=== PATIENT | male | born 1995 | race Caucasian/White ===

== ENCOUNTER 2019-02-28 14:34 | Emergency (ER) | payer BC ==
--- NOTE | 2019-02-28 17:37 | US ---
INDICATION: Left sided scrotal pain x 3 days. Indication: Left-sided scrotal pain for 3 days. Technique: Scrotal ultrasound. 2D, color, and spectral Doppler interrogation of was obtained. Color/spectral Doppler was performed to evaluate for testicular torsion. Comparison: None. Findings: The right testis measures 3.2 x 4.2 x 2.5 cm. No intratesticular mass. No evidence for testicular torsion. Normal, low resistance arterial blood flow is preserved to the right testis on color/spectral Doppler. No significant hydrocele. The right epididymal head does not appear inflamed. There is no significant scrotal wall thickening. The left testis measures 2.6 x 4.5 x 2.2 cm. No intratesticular mass. No evidence for testicular torsion. Left epididymal head does not appear inflamed. There is a small left hydrocele. Impression: 1. Testes are negative for intratesticular mass or evidence for torsion. 2. Normal, low resistance arterial blood flow is preserved to both testes on color/spectral Doppler. 3. Small left hydrocele. Dictated by Jabier Viera MD @ 02/28/2019 5:36:49 PM Dictated by: Jabier Viera MD @ 02/28/2019 17:37:10 (Electronically Signed)
--- NOTE | 2019-02-28 18:11 | EDM.PDOC ---
ED HPI GENERAL MEDICAL PROBLEM - General Chief Complaint: Genitourinary Problem Stated Complaint: LEFT TESTICLE PAIN Time Seen by Provider: 02/28/19 14:47 Source of Information: Reports: Patient History Limitations: Reports: No Limitations - History of Present Illness INITIAL COMMENTS - FREE TEXT/NARRATIVE: HISTORY AND PHYSICAL: History of present illness: Patient is a 24-year-old male presents to the ED today with concern of left testicular pain off and on x 3 days. Patient denies no new sexual partners in the past 6 months. Patient rates his pain a 4 out of 10 today. Patient denies injury to the area or penile discharge. Patient denies fever, chills, chest pain, shortness of breath, or cough. Denies headache, neck stiff ness, change in vision, syncope, or near syncope. Denies nausea, vomiting, abdominal pain, diarrhea, constipation, or dysuria. Has not noted any blood in urine or stool. Patient has been eating and drinking appropriately. Review of systems: As per history of present illness and below otherwise all systems reviewed and negative. Past medical history: As per history of present illness and as reviewed below otherwise noncontributory. Surgical history: As per history of present illness and as reviewed below otherwise noncontributory. Social history: See social history for further information Family history: As per history of present illness and as reviewed below otherwise noncontributory. Physical exam: General: Patient is alert, oriented, and in no acute distress. Patient sitting comfortably on exam table. HEENT: Atraumatic, normocephalic, pupils equal and reactive bilaterally, negative for conjunctival pallor or scleral icterus, mucous membranes moist, TMs normal bilaterally, throat clear, neck supple, nontender, trachea midline. No drooling or trismus noted. No meningeal signs. No hot potato voice noted. Lungs: Clear to auscultation, breath sounds equal bilaterally, chest nontender. Heart: S1S2, regular rate and rhythm without overt murmur Abdomen: Soft, nondistended, nontender. Negative for masses or hepatosplenomegaly. Negative for costovertebral tenderness. Pelvis: Stable nontender. Genitourinary: No rashes, ulcers, scarring, nodules, induration, penile drainage , scrotal masses or hernias noted. Mild pain to palpation of left testicle. Rectal: Deferred. Skin: Intact, warm, dry. No lesions or rashes noted. Extremities: Atraumatic, negative for cords or calf pain. Neurovascular unremarkable. Neuro: Awake, alert, oriented. Cranial nerves II through XII unremarkable. Cerebellum unremarkable. Motor and sensory unremarkable throughout. Exam nonfocal. Notes: Discussed the importance for follow-up with urology and his primary care provider. Voices understanding and is agreeable to plan of care. Denies any further questions or concerns at this time. Diagnostics: UA, gonorrhea and chlamydia, testicular ultrasound Therapeutics: None Prescription: None Impression: Left testicular hydrocele Plan: 1. You can alternate Tylenol and ibuprofen as directed and as discussed. 2. Follow-up with urologist or primary care provider as discussed. 3. Return to the ED as needed and as discussed. Definitive disposition and diagnosis as appropriate pending reevaluation and review of above. Left Scrotum Pain Score (Numeric/FACES): 4 - Related Data Allergies Allergy/AdvReac Type Severity Reaction Status Date / Time griseofulvin Allergy Hives Verified 02/28/19 15:03 Home Meds: Home Meds . [No Known Home Meds] 02/28/19 [History] Past Medical History - Past Health History Medical/Surgical History: Denies Medical/Surgical History Social & Family History - Tobacco Use Smoking Status *Q: Never Smoker - Recreational Drug Use Recreational Drug Use: No ED ROS GENERAL - Review of Systems Review Of Systems: ROS reveals no pertinent complaints other than HPI. ED EXAM, RENAL/ - Physical Exam Exam: See Below (See dictation) Course - Vital Signs Last Recorded V/S: Last Vital Signs Temp 36.5 C 02/28/19 15:01 Pulse 87 02/28/19 18:32 Resp 18 02/28/19 18:32 BP 131/58 L 02/28/19 18:32 Pulse Ox 97 02/28/19 18:32 - Orders/Labs/Meds Orders: Active Orders 24 hr Category Date Time Status CHLAMYDIA AND GONORRHEA BY TMA Stat Lab 02/28/19 15:45 Received Labs: Laboratory Tests 02/28/19 Range/Units 15:45 Urine Color YELLOW Urine Appearance CLEAR Urine pH 6.5 (5.0-8.0) Ur Specific [place] 1.025 (1.001-1.035) Urine Protein NEGATIVE (NEGATIVE) mg/dL Urine Glucose (UA) NEGATIVE (NEGATIVE) mg/dL Urine Ketones NEGATIVE (NEGATIVE) mg/dL Urine Occult Blood NEGATIVE (NEGATIVE) Urine Nitrite NEGATIVE (NEGATIVE) Urine Bilirubin NEGATIVE (NEGATIVE) Urine Urobilinogen 1.0 (<2.0) EU/dL Ur Leukocyte Esterase NEGATIVE (NEGATIVE) Departure - Departure Time of Disposition: 18:14 Disposition: Home, Self-Care 01 Clinical Impression: Hydrocele Qualifiers: Hydrocele type: other Qualified Code(s): N43.2 - Other hydrocele - Discharge Information Instructions: Hydrocele, Adult Referrals: Abdi Collins MD [Primary Care Provider] - Forms: ED Department Discharge Additional Instructions: The following information is given to patients seen in the emergency department who are being discharged to home. This information is to outline your options for follow-up care. We provide all patients seen in our emergency department with a follow-up referral. The need for follow-up, as well as the timing and circumstances, are variable depending upon the specifics of your emergency department visit. If you don't have a primary care physician on staff, we will provide you with a referral. We always advise you to contact your personal physician following an emergency department visit to inform them of the circumstance of the visit and for follow-up with them and/or the need for any referrals to a consulting specialist. The emergency department will also refer you to a specialist when appropriate. This referral assures that you have the opportunity for follow-up care with a specialist. All of these measure are taken in an effort to provide you with optimal care, which includes your follow-up. Under all circumstances we always encourage you to contact your private physician who remains a resource for coordinating your care. When calling for follow-up care, please make the office aware that this follow-up is from your recent emergency room visit. If for any reason you are refused follow-up, please contact the [facility] Emergency Department at and asked to speak to the emergency department charge nurse. [facility] [address] [place] [id number] [address] [facility] - Urology [address] [place] [id number] 1. You can alternate Tylenol and ibuprofen as directed and as discussed. 2. Follow-up with urologist or primary care provider as discussed. 3. Return to the ED as needed and as discussed.
== END 2019-02-28 18:32 | disposition home or self-care (01) ==
LOC: MW.ED 14:34
DX: N43.2 Other hydrocele (principal); Z88.8 Allergy status to other drugs, medicaments and biological substances
CPT/HCPCS: 76870; 76870-26; 81003; 87491; 87591; 99284-25

== ENCOUNTER 2020-07-31 18:21 | Emergency (ER) | payer BC, OTHER ==
[2020-07-31] MEDS ORDERED: Sodium Chloride 0.9% 1,000 ML IV ONE (18:41)
--- NOTE | 2020-07-31 18:56 | EDM.PDOC ---
ED HPI GENERAL MEDICAL PROBLEM - General Chief Complaint: General Stated Complaint: DIZZY, SHORT BREATH, PLAYING SPORTS Time Seen by Provider: 07/31/20 18:43 Source of Information: Reports: Patient History Limitations: Reports: No Limitations - History of Present Illness INITIAL COMMENTS - FREE TEXT/NARRATIVE: HISTORY AND PHYSICAL: History of present illness: Patient is a 25-year-old male who presents to the emergency room with complaints of dizziness, shortness of breath and near syncopal. Prior to arrival the patient was playing basketball when he became very short of breath and felt dizzy. He said he had to sit down as he felt like he could have passed out. Symptoms continued and are now improving while here in the emergency room. He states this is not the first time this has happened although he has never had it evaluated by a provider. Typically the symptoms are brought on by physical activity and will resolve on their own within a few minutes. Patient denies any fever, chills, headache, change in vision, syncope, chest pain, or back pain. Denies any abdominal pain, nausea, vomiting, diarrhea, constipation or dysuria. Patient has been eating and drinking appropriately. He has no personal history of cardiac or pulmonary illness. He states his family has no significant health history either. He denies any alcohol or drug abuse. Review of systems: As per history of present illness and below otherwise all systems reviewed and negative. Past medical history: As per history of present illness and as reviewed below otherwise noncontributory. Surgical history: As per history of present illness and as reviewed below otherwise noncontributory. Social history: See social history for further information Family history: As per history of present illness and as reviewed below otherwise noncontributory. Physical exam: General: Well developed and well nourished. Alert and orientated x 3. Nontoxic in appearance and in no acute distress. Vital signs are stable and have been reviewed by me. Nursing notes were reviewed. HEENT: Atraumatic, normocephalic, pupils equal and reactive bilaterally, negative for conjunctival pallor or scleral icterus, mucous membranes moist, TMs normal bilaterally, throat clear, neck supple, nontender, trachea midline. No drooling or trismus noted. No meningeal signs. No hot potato voice noted. Lungs: Clear to auscultation, breath sounds equal bilaterally, chest nontender. Normal work of breathing, no accessory muscles used. Heart: S1S2, regular rate and rhythm without overt murmur Abdomen: Soft, nondistended, nontender. Negative for masses or hepatosplenomegaly. Negative for costovertebral tenderness. Pelvis: Stable nontender. Skin: Intact, warm, dry. No lesions or rashes noted. Hematologic: No petechiae or purpra. Mucosa appropriate color and normal nail bed color and refill. Extremities: Atraumatic, moves all extremities per self without difficulty or deficits, negative for cords or calf pain. Neurovascular unremarkable. Neuro: Awake, alert, oriented. Cranial nerves II through XII unremarkable. Cerebellum unremarkable. Motor and sensory unremarkable throughout. Exam nonfocal. Psychiatric: Mood and affect are appropriate. Normal thought process. Answering questions appropriately. Notes: Patient's initial EKG shows atrial fibrillation although there are some noted P waves, rate . His lab work is unremarkable. Chest x-ray is normal. His vital signs have remained stable. A second EKG was ordered after his fluid bolus. Patient's repeat EKG shows a normal sinus rhythm with a rate of 59. His vital signs are stable. I did talk with Dr. Ceballos, cardiology at [facility], to discuss his case. He states the patient should have an echocardiogram as an outpatient (no need for admission) and no daily medication needs to be prescribed at this time. He recommends prescribing Lopressor to be taken twice daily as needed for the onset of palpitations. Patient states he is asymptom atic and would like to be discharged home. I did offer/discuss admission which he declines. Counseling was provided and we discussed in great detail signs and symptoms that would prompt them to return to the Emergency Department. Medication, follow up and supportive care measures were reviewed and discussed. Voices understanding and is agreeable to plan of care. Denies any further questions or concerns at this time. Diagnostics: CBC, CMP, COVID, Troponin, TSH, INR, CXR, EKG x 2 Therapeutics: IV fluids Prescription: Lopressor Impression: Atrial fibrillation Plan: 1. Today your EKG showed you had an irregular heart rhythm, atrial fibrillation. After fluids and time your heart converted back into a normal sinus rhythm. You need to follow-up with a glass sander to have a further work-up, likely an echocardiogram. We do have a glass sander here in [place], Dr. Blakely (Dr. Garcia) or - I spoke with Dr Harley at [facility] in [place], who is aware of your case. Please call on Saturday to set up a follow-up appointment. 2. You have been given a prescription for Lopressor, you can take 1 tab up to twice a day as needed for palpitations. 3. If your symptoms should worsen, new symptoms develop or any of the signs and symptoms we discussed should arise please return to the emergency room or call 911 (if needed). Definitive disposition and diagnosis as appropriate pending reevaluation and review of above. - Related Data Allergies Allergy/AdvReac Type Severity Reaction Status Date / Time griseofulvin Allergy Hives Verified 07/31/20 18:26 Home Meds: Home Meds Metoprolol Succinate [Toprol XL] 12.5 mg PO BID PRN #10 tab.er 07/31/20 [Rx] Past Medical History - Past Health History Medical/Surgical History: Denies Medical/Surgical History Social & Family History - Family History Family Medical History: Noncontributory - Caffeine Use Caffeine Use: Reports: Tea - Recreational Drug Use Recreational Drug Type: Reports: Other (see below) Other Recreational Drug Type: Inhaled CBD ED ROS GENERAL - Review of Systems Review Of Systems: Comprehensive ROS is negative, except as noted in HPI. ED EXAM, GENERAL - Physical Exam Exam: See Below (See dictation) Course - Vital Signs Last Recorded V/S: Last Vital Signs Temp 97.4 F 07/31/20 18:27 Pulse 89 07/31/20 18:27 Resp 20 07/31/20 18:27 BP 117/74 07/31/20 18:27 Pulse Ox 99 07/31/20 18:27 - Orders/Labs/Meds Orders: Active Orders 24 hr Category Date Time Status EKG Documentation Completion [RC] STAT Care 07/31/20 18:41 Active EKG Documentation Completion [RC] STAT Care 07/31/20 20:18 Active Labs: Laboratory Tests 07/31/20 07/31/20 07/31/20 Range/Units 19:10 19:10 19:10 WBC 6.08 (4.0-11.0) K/uL RBC 5.96 H (4.50-5.90) M/uL Hgb 17.0 (13.0-17.0) g/dL Hct 47.8 (38.0-50.0) % MCV 80.2 (80.0-98.0) fL MCH 28.5 (27.0-32.0) pg MCHC 35.6 (31.0-37.0) g/dL RDW Std Deviation 35.2 (28.0-62.0) fl RDW Coeff of Jerzy 12 (11.0-15.0) % Plt Count 252 (150-400) K/uL MPV 9.80 (7.40-12.00) fL Neut % (Auto) 60.6 (48.0-80.0) % Lymph % (Auto) 29.6 (16.0-40.0) % Daniels % (Auto) 8.9 (0.0-15.0) % Eos % (Auto) 0.7 (0.0-7.0) % Baso % (Auto) 0.2 (0.0-1.5) % Neut # (Auto) 3.7 (1.4-5.7) K/uL Lymph # (Auto) 1.8 (0.6-2.4) K/uL Daniels # (Auto) 0.5 (0.0-0.8) K/uL Eos # (Auto) 0.0 (0.0-0.7) K/uL Baso # (Auto) 0.0 (0.0-0.1) K/uL INR 1.07 Sodium 138 (136-148) mmol/L Potassium 3.7 (3.5-5.1) mmol/L Chloride 101 (98-107) mmol/L Carbon Dioxide 25.9 (21.0-32.0) mmol/L BUN 12 (7.0-18.0) mg/dL Creatinine 1.0 (0.8-1.3) mg/dL Est Cr Clr Drug Dosing 117.61 mL/min Estimated GFR (MDRD) > 60.0 ml/min Glucose 89 (74-106) mg/dL Calcium 9.6 (8.5-10.1) mg/dL Total Bilirubin 0.6 (0.2-1.0) mg/dL AST 30 (15-37) IU/L ALT 35 (14-63) IU/L Alkaline Phosphatase 99 (46-116) U/L Troponin I < 0.050 (0.000-0.056) ng/mL Total Protein 8.2 (6.4-8.2) g/dL Albumin 4.7 (3.4-5.0) g/dL Globulin 3.5 (2.6-4.0) g/dL Albumin/Globulin Ratio 1.3 (0.9-1.6) TSH 3rd Generation 1.57 (0.36-3.74) uIU/mL SARS Virus RNA (PCR) (NEGATIVE) 07/31/20 Range/Units 19:42 WBC (4.0-11.0) K/uL RBC (4.50-5.90) M/uL Hgb (13.0-17.0) g/dL Hct (38.0-50.0) % MCV (80.0-98.0) fL MCH (27.0-32.0) pg MCHC (31.0-37.0) g/dL RDW Std Deviation (28.0-62.0) fl RDW Coeff of Jerzy (11.0-15.0) % Plt Count (150-400) K/uL MPV (7.40-12.00) fL Neut % (Auto) (48.0-80.0) % Lymph % (Auto) (16.0-40.0) % Daniels % (Auto) (0.0-15.0) % Eos % (Auto) (0.0-7.0) % Baso % (Auto) (0.0-1.5) % Neut # (Auto) (1.4-5.7) K/uL Lymph # (Auto) (0.6-2.4) K/uL Daniels # (Auto) (0.0-0.8) K/uL Eos # (Auto) (0.0-0.7) K/uL Baso # (Auto) (0.0-0.1) K/uL INR Sodium (136-148) mmol/L Potassium (3.5-5.1) mmol/L Chloride (98-107) mmol/L Carbon Dioxide (21.0-32.0) mmol/L BUN (7.0-18.0) mg/dL Creatinine (0.8-1.3) mg/dL Est Cr Clr Drug Dosing mL/min Estimated GFR (MDRD) ml/min Glucose (74-106) mg/dL Calcium (8.5-10.1) mg/dL Total Bilirubin (0.2-1.0) mg/dL AST (15-37) IU/L ALT (14-63) IU/L Alkaline Phosphatase (46-116) U/L Troponin I (0.000-0.056) ng/mL Total Protein (6.4-8.2) g/dL Albumin (3.4-5.0) g/dL Globulin (2.6-4.0) g/dL Albumin/Globulin Ratio (0.9-1.6) TSH 3rd Generation (0.36-3.74) uIU/mL SARS Virus RNA (PCR) NEGATIVE (NEGATIVE) Meds: Medications Discontinued Medications Generic Name Dose Route Start Last Admin Trade Name Freq PRN Reason Stop Dose Admin Sodium Chloride 1,000 mls @ 999 mls/hr 07/31/20 18:41 07/31/20 19:11 Normal Saline IV 07/31/20 19:41 999 mls/hr STAT ONE Administration Departure - Departure Time of Disposition: 21:18 Disposition: Home, Self-Care 01 Clinical Impression: Atrial fibrillation Qualifiers: Atrial fibrillation type: unspecified Qualified Code(s): I48.91 - Unspecified atrial fibrillation - Discharge Information Prescriptions: Metoprolol Succinate [Toprol XL] 12.5 mg PO BID PRN #10 tab.er PRN Reason: Palpitations Instructions: Atrial Fibrillation Referrals: PCP,None [Primary Care Provider] - Forms: ED Department Discharge Additional Instructions: The following information is given to patients seen in the emergency department who are being discharged to home. This information is to outline your options for follow-up care. We provide all patients seen in our emergency department with a follow-up referral. The need for follow-up, as well as the timing and circumstances, are variable depending upon the specifics of your emergency department visit. If you don't have a primary care physician on staff, we will provide you with a referral. We always advise you to contact your personal physician following an emergency department visit to inform them of the circumstance of the visit and for follow-up with them and/or the need for any referrals to a consulting specialist. The emergency department will also refer you to a specialist when appropriate. This referral assures that you have the opportunity for follow-up care with a specialist. All of these measure are taken in an effort to provide you with optimal care, which includes your follow-up. Under all circumstances we always encourage you to contact your private physician who remains a resource for coordinating your care. When calling for follow-up care, please make the office aware that this follow-up is from your recent emergency room visit. If for any reason you are refused follow-up, please contact the [facility] Emergency Department at and asked to speak to the emergency department charge nurse. [facility] [address] [place] [id number] [id number] Thank you for choosing the [facility] emergency department in [place] for your medical needs today. It was a pleasure caring for you. Today you were seen in the emergency department for shortness of breath and dizziness. 1. Today your EKG showed you had an irregular heart rhythm, atrial fibrillation. After fluids and time your heart converted back into a normal sinus rhythm. You need to follow-up with a glass sander to have a further work-up, likely an echocardiogram. We do have a glass sander here in [place], Dr. Blakely (Dr. Garcia) or - I spoke with Dr Harley at [facility] in [place], who is aware of your case. Please call on Saturday to set up a follow-up appointment. 2. You have been given a prescription for Lopressor, you can take 1 tab up to twice a day as needed for palpitations. 3. If your symptoms should worsen, new symptoms develop or any of the signs and symptoms we discussed should arise please return to the emergency room or call 911 (if needed). Sepsis Event Note (ED) - Evaluation Sepsis Screening Result: No Definite Risk - Focused Exam Vital Signs: Vital Signs Temp Pulse Resp BP Pulse Ox 07/31/20 18:27 97.4 F 89 20 117/74 99 - My Orders Last 24 Hours: My Active Orders 07/31/20 18:41 EKG Documentation Completion [RC] STAT 07/31/20 20:18 EKG Documentation Completion [RC] STAT - Assessment/Plan Last 24 Hours: My Active Orders 07/31/20 18:41 EKG Documentation Completion [RC] STAT 07/31/20 20:18 EKG Documentation Completion [RC] STAT
--- NOTE | 2020-07-31 19:42 | CR ---
INDICATION: Chest pain and shortness of breath. TECHNIQUE: One-view of the chest. COMPARISON: No prior. FINDINGS: No lung infiltrate or pulmonary edema. No pneumothorax or pleural effusion. Cardiac size and pulmonary vasculature are within normal limits. No acute bony abnormality. IMPRESSION: No acute disease. Dictated by Corby Ball MD @ 07/31/2020 7:40:27 PM Dictated by: Corby Ball MD @ 07/31/2020 19:40:31 (Electronically Signed)
[2020-07-31 19:46] LABS: BLOOD UREA NITROGEN,BUN 12 mg/dL (7.0-18.0); CARBON DIOXIDE,CO2 25.9 mmol/L (21.0-32.0); CHLORIDE,CL 101 mmol/L (98-107); GLUCOSE RANDOM 89 mg/dL (74-106); POTASSIUM,K 3.7 mmol/L (3.5-5.1); SODIUM,NA 138 mmol/L (136-148)
== END 2020-07-31 21:52 | disposition home or self-care (01) ==
LOC: MW.ED 18:21
DX: I48.91 Unspecified atrial fibrillation (principal); Z20.828 Contact with and (suspected) exposure to other viral communicable diseases; Z88.3 Allergy status to other anti-infective agents
CPT/HCPCS: 36415; 71045; 80053; 84443; 84484; 85025; 85610; 87635; 93005; 96360; 96361; 99284; J7030; 99283; U0002

== ENCOUNTER 2020-12-26 21:56 | Emergency (ER) | payer BC ==
--- NOTE | 2020-12-26 22:08 | EDM.PDOC ---
ED HPI GENERAL MEDICAL PROBLEM - General Stated Complaint: LEFT ABDOMINAL PAIN Time Seen by Provider: 12/26/20 22:01 Source of Information: Reports: Patient History Limitations: Reports: No Limitations - History of Present Illness INITIAL COMMENTS - FREE TEXT/NARRATIVE: 25-year-old male with no past medical history presents with abdominal pain. Pain has been intermittent over the past 3 months, localized to the left upper quadrant, nonradiating, sharp. Denies fever, chills, nausea, vomiting, diarrhea, chest pain, back pain. He has not seek care through his PCP. ROS: A 10-point review of systems, other than pertinent positives and negatives as stated per HPI, is otherwise negative Past medical history: No additional pertinent history Past Surgical history: No additional pertinent history Social history: No additional pertinent history Family history: No additional pertinent history PHYSICAL EXAM General: AOx4, GCS = 15, No distress HEENT: dry mucous membrane Neck: supple, no meningismus, no Kernig or Brudzinski Cardiac: S1S2 RRR Respiratory: CTAB, no crackles or rales, no wheezing Abdomen: Soft, nontender, no rebound or guarding, nondistended, no pulsatile mass. Back: nontender Musculoskeletal: NVI distally, no deformity Neuro: No focal deficits, CN 2 - 12 WNL. abdominal Pain Score (Numeric/FACES): 2 - Related Data Allergies Allergy/AdvReac Type Severity Reaction Status Date / Time griseofulvin Allergy Hives Verified 12/26/20 22:21 Home Meds: Home Meds Omeprazole Magnesium [Prilosec Otc] 20 mg PO DAILY #30 tablet. 12/26/20 [Rx] Past Medical History - Past Health History Medical/Surgical History: Denies Medical/Surgical History Social & Family History - Family History Family Medical History: No Pertinent Family History - Caffeine Use Caffeine Use: Reports: Tea ED ROS GENERAL - Review of Systems Review Of Systems: See Below (see dictation) ED EXAM, GENERAL - Physical Exam Exam: See Below (see dictation) Course - Vital Signs Last Recorded V/S: Last Vital Signs Temp 97.2 F 12/26/20 21:58 Pulse 75 12/26/20 21:58 Resp 16 12/26/20 21:58 BP 129/64 12/26/20 21:58 Pulse Ox 97 12/26/20 21:58 - Orders/Labs/Meds Meds: Medications Discontinued Medications Generic Name Dose Route Start Last Admin Trade Name Wily PRN Reason Stop Dose Admin Al Hydroxide/Mg Hydroxide 15 0 ml 12/26/20 22:09 12/26/20 22:21 ml/ Metoclopramide HCl 5 mg/ PO 12/26/20 22:10 25 each Lidocaine HCl 5 ml ONETIME ONE Administration - Re-Assessments/Exams Free Text/Narrative Re-Assessment/Exam: 12/26/20 23:28 After GI cocktail in the ER, the patient improved and is currently stable for discharge. I performed a repeat exam and did not appreciate new abnormal findings. Patient exhibits normal vital signs and has a normal gait on road test. I advised the patient to return to the ER for reevaluation if symptoms worsened, including fever, worsening pain, or any other worrisome symptoms. I instructed the patient to follow up with their PCP within 2-3 days. MEDICAL DECISION MAKING: I reviewed the patients past medical records, lab and radiographic findings. I discussed the case with the patient. My differential diagnosis included: GERD, gastritis, PUD. he had no tenderness in the epigastric or right upper quadrant or right lower quadrant region, I do not suspect cholecystitis, pancreatitis, appendicitis, bowel obstruction. He felt better after GI cocktail, and his complaint is localized to the left upper quadrant, clinically consistent with gastritis Departure - Departure Time of Disposition: 23:29 Disposition: Home, Self-Care 01 Condition: Good Clinical Impression: Gastritis - Discharge Information *PRESCRIPTION DRUG MONITORING PROGRAM REVIEWED*: Not Applicable *COPY OF PRESCRIPTION DRUG MONITORING REPORT IN PATIENT GERARD: Not Applicable Prescriptions: Omeprazole Magnesium [Prilosec Otc] 20 mg PO DAILY #30 tablet. Instructions: Gastritis, Adult, [id number] Referrals: PCP,None [Primary Care Provider] - 1 Week Forms: ED Department Discharge Additional Instructions: The need for follow-up, as well as the timing and circumstances, are variable depending upon the specifics of your emergency department visit. If you don't have a primary care physician on staff, we will provide you with a referral. We always advise you to contact your personal physician following an emergency department visit to inform them of the circumstance of the visit and for follow-up with them and/or the need for any referrals to a consulting specialist. The emergency department will also refer you to a specialist when appropriate. This referral assures that you have the opportunity for follow-up care with a specialist. All of these measure are taken in an effort to provide you with optimal care, which includes your follow-up. Under all circumstances we always encourage you to contact your private physician who remains a resource for coordinating your care. When calling for follow-up care, please make the office aware that this follow-up is from your recent emergency room visit. If for any reason you are refused follow-up, please contact the [facility] Emergency Department at and asked to speak to the emergency department charge nurse. If you do not have a primary care doctor, please follow up with the clinics below within 3-5 days. [facility] - Primary Care [address] [place] [id number] [facility] [address] [place] [id number] Sepsis Event Note (ED) - Focused Exam Vital Signs: Vital Signs Temp Pulse Resp BP Pulse Ox 12/26/20 21:58 97.2 F 75 16 129/64 97
[2020-12-26] MEDS ORDERED: Alum Hydrox/Mag Hydrox/Simeth 15 ML, Metoclopramide 5 MG, Lidocaine 2% 5 ML PO ONE ×3 (22:09)
== END 2020-12-26 23:36 | disposition home or self-care (01) ==
LOC: MW.ED 21:56
DX: K29.70 Gastritis, unspecified, without bleeding (principal)
CPT/HCPCS: 99283; A9270

== ENCOUNTER 2021-03-26 18:45 | Observation (INO) | payer BC ==
[2021-03-26] MEDS ORDERED: Morphine 4 MG/ML Syringe IVPUSH ONE ×2 (18:49→20:03)
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
[2021-03-26 19:46] LABS: BLOOD UREA NITROGEN,BUN 17 mg/dL (7.0-18.0); CARBON DIOXIDE,CO2 28.3 mmol/L (21.0-32.0); CHLORIDE,CL 105 mmol/L (98-107); GLUCOSE RANDOM 82 mg/dL (74-106); POTASSIUM,K 3.7 mmol/L (3.5-5.1); SODIUM,NA 144 mmol/L (136-148)
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
[2021-03-26] MEDS ORDERED: Acetaminophen/HYDROcodone 325-5 MG Tab PO PRN (20:52)
[2021-03-26] MEDS ORDERED: Morphine 10 MG/ML Syringe IVPUSH PRN (20:52)
[2021-03-26] MEDS ORDERED: Diazepam 2 MG Tab PO PRN (20:53)
--- NOTE | 2021-03-26 20:53 | CR ---
Indication : Injury. Tender medial TECHNIQUE: Two views left ankle. FINDINGS: Mildly displaced fracture involving the left medial malleolus with tiny ossific fragments adjacent to the dominant fracture fragment. The appearance of the fracture indicates it has chronic or subacute ununited component. Moderate soft tissue swelling left ankle laterally extending into the hindfoot. No other fracture or dislocation in left ankle. Left ankle otherwise unremarkable. Dictated by Sridhar Holder MD @ 03/26/2021 8:51:[address] Sridhar Holder @ Mar 26 2021 8:51PM
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
[2021-03-26] MEDS: Cyclobenzaprine 5 MG Tab PO SCH (23:20)
[2021-03-26] MEDS: Lactated Ringers 1,000 ML IV SCH (23:23)
--- NOTE | 2021-03-27 06:50 | CR ---
Indication: Left 1st rib and clavicle fracture Comparison: Single view chest March 26, 2021 Technique: Single AP view chest Findings: There is hyperinflation and chronic interstitial change. There is no focal consolidation, effusion, or pneumothorax. The cardiomediastinal silhouette is within normal limits. Redemonstration of fracture of the left clavicle. Previously-seen lucencies within the 1st and 2nd ribs are not well appreciated on current exam. Impression: Hyperinflation and chronic interstitial change without dense consolidation. Redemonstration of comminuted left clavicle fracture. Previously seen lucency through the 1st and 2nd ribs are not well appreciated on current exam. Otherwise, no acute cardiopulmonary abnormality. Dictated by Prosper Amin MD @ 03/27/2021 6:49:[address] Prosper Amin @ Mar 27 2021 6:49AM
[2021-03-27] MEDS: Cyclobenzaprine 5 MG Tab PO SCH (07:36)
[2021-03-27] MEDS: Lactated Ringers 1,000 ML IV SCH (07:36)
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
== END 2021-03-27 12:20 | disposition home or self-care (01) ==
LOC: MW.ED 18:45 → MW.MS 20:51
PROVIDERS: ADMIT Surgery; ATTEND Surgery
DX: S22.32XA Fracture of one rib, left side, initial encounter for closed fracture (principal); S82.55XA Nondisplaced fracture of medial malleolus of left tibia, initial encounter for closed fracture; S42.022A Displaced fracture of shaft of left clavicle, initial encounter for closed fracture; F17.210 Nicotine dependence, cigarettes, uncomplicated; Z20.822 Contact with and (suspected) exposure to COVID-19; Z88.8 Allergy status to other drugs, medicaments and biological substances; V86.56XA Driver of dirt bike or motor/cross bike injured in nontraffic accident, initial encounter
CPT/HCPCS: 36415; 70450; 71045; 72125; 72170; 73000; 73600; 80053; 80307; 85025; 87635; A9270; J2270; J7120; 96374; 96376; 99284; 99285-25; G0378; U0002

== ENCOUNTER 2021-03-29 10:07 | Day surgery (SDC) | payer BC ==
[~2021-03-29 10:07] MED LIST: Acetaminophen 1,000 MG in Premix Bag 1 BAG IV PRN; Glycopyrrolate 0.2 MG/ML SDV ONE; Ketorolac 30 MG/ML SDV ONE; Lactated Ringers 1,000 ML IV SCH; Lidocaine 2% 5 ML SDV ONE; Midazolam 1 MG/ML 2 ML SDV ONE; Ondansetron 4 MG/2 ML SDV ONE; Propofol 200 MG/20 ML SDV ONE; ceFAZolin 2 GM in Premix Bag 1 BAG IV SCH; fentaNYL 100 MCG/2 ML SDV IVPUSH PRN; fentaNYL 100 MCG/2 ML SDV ONE
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
[2021-03-29] MEDS ORDERED: ceFAZolin 1 GM Vial ONE (11:18)
[2021-03-29] MEDS ORDERED: Bupivacaine 0.5% 30 ML SDV ONE (11:23)
[2021-03-29] MEDS ORDERED: Bupivacaine 25%/EPINEPHrine/PF 30 ML ONE (11:23)
[2021-03-29] MEDS ORDERED: Bupivacaine 0.25% 10 ML SDV ONE (11:23)
[2021-03-29] MEDS ORDERED: fentaNYL 100 MCG/2 ML SDV ONE ×2 (12:38→13:48)
[2021-03-29] MEDS ORDERED: HYDROmorphone 2 MG/ML Syringe IVPUSH PRN (14:46)
--- NOTE | 2021-03-29 14:47 | PCM.OPNOTE ---
- General Post-Op/Procedure Note Condition: Good
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
[2021-03-29] MEDS ORDERED: Haloperidol Lactate 5 MG/ML SDV IV PRN (15:25)
[2021-03-29] MEDS ORDERED: Haloperidol Lactate 5 MG/ML SDV ONE (15:32)
--- NOTE | 2021-03-29 15:33 | PCM.POSTAN ---
POST ANESTHESIA ASSESSMENT - MENTAL STATUS Mental Status: Alert, Oriented - VITAL SIGNS Vital Signs: Last Vital Signs Temp 97.5 F 03/29/21 14:54 Pulse 92 03/29/21 15:16 Resp 12 03/29/21 15:16 BP 121/58 L 03/29/21 15:16 Pulse Ox 95 03/29/21 15:16 - RESPIRATORY Respiratory Status: Respiratory Rate WNL, Airway Patent, O2 Saturation Stable - CARDIOVASCULAR CV Status: Pulse Rate WNL, Blood Pressure Stable - GASTROINTESTINAL GI Status: [place] - POST OP HYDRATION Hydration Status: Adequate & Stable - OBSERVATIONS Free Text/Narrative:: Pain is under control. Sleepy and somewhat nauseated.
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
--- NOTE | 2021-03-31 05:09 | CR ---
Indication: Surgery Technique: Three intraoperative fluoroscopic images. Comparison: X-rays dated 03/26/2021 Findings: Postsurgical fixation of medial malleolar fracture, alignment unchanged with two surgical pins through the medial malleolus and screw transversely through the distal tibia. Dictated by Sue Meyers MD @ 03/31/2021 5:08:[address] Sue Meyers @ Mar 31 2021 5:08AM
== END 2021-03-29 18:51 | disposition home or self-care (01) ==
LOC: MW.SDS 10:07 → MW.MS 16:56 → MW.SDS 18:51
PROVIDERS: ATTEND Orthopaedic Surgery
DX: S42.022A Displaced fracture of shaft of left clavicle, initial encounter for closed fracture (principal); S82.52XA Displaced fracture of medial malleolus of left tibia, initial encounter for closed fracture; S22.32XA Fracture of one rib, left side, initial encounter for closed fracture; F17.200 Nicotine dependence, unspecified, uncomplicated; Z88.8 Allergy status to other drugs, medicaments and biological substances; Z79.899 Other long term (current) drug therapy; V86.56XA Driver of dirt bike or motor/cross bike injured in nontraffic accident, initial encounter
CPT/HCPCS: 23515; 27766; 76000; J0131; J0690; J1630; J1885; J2250; J2405; J2704; J3010; J3490; J7120

== ENCOUNTER 2021-03-30 06:13 | Emergency (ER) | payer BC ==
[2021-03-30] MEDS ORDERED: Ketorolac 30 MG/ML SDV IM ONE (06:27)
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
== END 2021-03-30 07:05 | disposition home or self-care (01) ==
LOC: MW.ED 06:13
DX: M25.512 Pain in left shoulder (principal); M25.572 Pain in left ankle and joints of left foot; Z88.8 Allergy status to other drugs, medicaments and biological substances; Z79.899 Other long term (current) drug therapy; Z79.82 Long term (current) use of aspirin
CPT/HCPCS: 96372; 99283; J1885

== ENCOUNTER 2022-03-31 00:05 | Emergency (ER) | payer BC ==
[2022-03-31] MEDS ORDERED: Ketorolac 30 MG/ML SDV IM STA (00:44)
[2022-03-31] MEDS ORDERED: Lactated Ringers 1,000 ML IV STA (00:44)
[2022-03-31] MEDS ORDERED: Ketorolac 30 MG/ML SDV IVPUSH ONE (00:48)
[2022-03-31 01:14] LABS: BLOOD UREA NITROGEN,BUN 18 mg/dL (7.0-18.0); CARBON DIOXIDE,CO2 27.8 mmol/L (21.0-32.0); CHLORIDE,CL 102 mmol/L (98-107); GLUCOSE RANDOM 113 mg/dL (74-106); POTASSIUM,K 3.9 mmol/L (3.5-5.1); SODIUM,NA 137 mmol/L (136-148)
[2022-03-31] MEDS ORDERED: Cefuroxime 250 MG Tab PO STA (01:43)
== END 2022-03-31 02:10 | disposition home or self-care (01) ==
LOC: MW.ED 00:05
DX: N13.2 Hydronephrosis with renal and ureteral calculous obstruction (principal); N30.00 Acute cystitis without hematuria; Z79.899 Other long term (current) drug therapy; Z88.3 Allergy status to other anti-infective agents
CPT/HCPCS: 36415; 74176; 74176-26; 80048; 81001; 85025; 96361; 96374; 99284; 99284-25; A9270-GY; J1885; J7120

== ENCOUNTER 2022-04-14 21:38 | Emergency (ER) | payer OTHER, BC ==
[2022-04-14] MEDS ORDERED: Ibuprofen 600 MG Tab PO ONE (22:27)
== END 2022-04-15 01:39 | disposition home or self-care (01) ==
LOC: MW.ED 21:38
DX: S09.90XA Unspecified injury of head, initial encounter (principal); M25.552 Pain in left hip; M25.561 Pain in right knee; M79.671 Pain in right foot; R51.9 Headache, unspecified; Z79.899 Other long term (current) drug therapy; V86.56XA Driver of dirt bike or motor/cross bike injured in nontraffic accident, initial encounter; Y92.410 Unspecified street and highway as the place of occurrence of the external cause
CPT/HCPCS: 70450; 70450-26; 73502-26-LT; 73502-LT; 73562-26-RT; 73562-RT; 73630-26-RT; 73630-RT; 99283; 99284-25; A9270-GY

== ENCOUNTER 2022-05-26 21:56 | Emergency (ER) | payer BC ==
[2022-05-27] MEDS ORDERED: Orphenadrine 60 MG/2 ML Inj IM ONE (00:39)
[2022-05-27] MEDS ORDERED: Ketorolac 30 MG/ML SDV IM STA (00:39)
== END 2022-05-27 01:52 | disposition home or self-care (01) ==
LOC: MW.ED 21:56
DX: M54.50 Low back pain, unspecified (principal); Z88.8 Allergy status to other drugs, medicaments and biological substances
CPT/HCPCS: 72100; 96372; 99283; J1885; J2360

== ENCOUNTER 2023-01-15 11:41 | Emergency (ER) | payer BC ==
[2023-01-15 12:48] LABS: CARBON DIOXIDE,CO2 27.3 mmol/L (21.0-32.0); POTASSIUM,K 4.2 mmol/L (3.5-5.1)
== END 2023-01-15 13:37 | disposition home or self-care (01) ==
LOC: MW.ED 11:41
DX: I30.0 Acute nonspecific idiopathic pericarditis (principal); Z88.8 Allergy status to other drugs, medicaments and biological substances
CPT/HCPCS: 36415; 71045; 71045-26; 80053; 80305-QW; 81003; 84484; 85025; 85652; 86140; 93005; 99285

== ENCOUNTER 2024-03-08 17:37 | Emergency (ER) | payer BC ==
[2024-03-08] MEDS ORDERED: Sodium Chloride 0.9% 10 ML Syringe FLUSH PRN (17:38)
[2024-03-08] MEDS ORDERED: Sodium Chloride 0.9% 2.5 ML Syringe FLUSH PRN (17:38)
[2024-03-08 18:26] LABS: BASOPHILS ABSOLUTE AUTO 0.02 K/uL (0.00-0.20); BASOPHILS PERCENT AUTO 0.3 % (0.0-1.0); EOSINOPHILS ABSOLUTE AUTO 0.09 K/uL (0.00-0.45); EOSINOPHILS PERCENT AUTO 1.5 % (0.0-6.0); HEMATOCRIT 44.7 % (42.0-52.0); HEMOGLOBIN 15.7 g/dL (14.0-18.0); IMMATURE GRAN ABSOLUTE AUTO 0.01 K/uL (0.00-0.05); IMMATURE GRAN PERCENT AUTO 0.2 % (0.0-0.4); LYMPHOCYTES ABSOLUTE AUTO 1.37 K/uL (1.00-4.80); LYMPHOCYTES PERCENT AUTO 22.6 % (24.0-44.0); MEAN CORPUSCULAR HEMOGLOBIN 28.4 pg (28.0-32.0); MEAN CORPUSCULAR HGB CONC 35.1 g/dL (32.0-36.0); MEAN CORPUSCULAR VOLUME 80.8 fL (83.0-99.0); MEAN PLATELET VOLUME 9.4 fL (9.4-12.4); MONOCYTES ABSOLUTE AUTO 0.63 K/uL (0.00-0.80); MONOCYTES PERCENT AUTO 10.4 % (0.0-8.0); NEUTROPHILS ABSOLUTE AUTO 3.94 K/uL (1.80-7.70); PLATELET COUNT,PLT 245 K/uL (150-400); RED BLOOD CELL COUNT 5.53 M/uL (4.52-5.90); WHITE BLOOD CELL COUNT,WBC 6.06 K/uL (3.9-11.3)
[2024-03-08 18:42] LABS: INR 0.96 (0.86-1.11); PTT,PARTIAL THROMBOPLSTIN TIME 32.8 SEC (23.9-30.7)
[2024-03-08 19:00] LABS: ALBUMIN 3.9 g/dL (3.4-5.0); BILIRUBIN TOTAL 0.4 mg/dL (0.2-1.0); CALCIUM 9.4 mg/dL (8.5-10.1); CARBON DIOXIDE,CO2 27.1 mmol/L (21.0-32.0); CREATININE 0.8 mg/dL (0.8-1.3); EST CRCL DRUG DOSING (CG) 141.94 mL/min; POTASSIUM,K 3.9 mmol/L (3.5-5.1); PROTEIN TOTAL,TP 7.8 g/dL (6.4-8.2)
[2024-03-08 19:13] LABS: MAGNESIUM 1.9 mg/dL (1.8-2.4)
== END 2024-03-08 21:48 | disposition home or self-care (01) ==
LOC: MW.ED 17:37
DX: R06.02 Shortness of breath (principal); Z88.8 Allergy status to other drugs, medicaments and biological substances
CPT/HCPCS: 36415; 71046; 71046-26; 80053; 83690; 83735; 84484; 85025; 85379; 85610; 85730; 93005; 93010; 99282; 99285